=== PATIENT | female | born 1960 | race Caucasian/White ===

== ENCOUNTER 2025-03-10 18:36 | Emergency (ER) | payer OTHER | END 2025-03-10 20:35 | disposition home or self-care (01) | LOC: FB.ED 18:36 | DX: S16.1XXA Strain of muscle, fascia and tendon at neck level, initial encounter (principal); E11.9 Type 2 diabetes mellitus without complications; Y04.8XXA Assault by other bodily force, initial encounter | CPT/HCPCS: 72125; 99284; A9270 ==